=== PATIENT | female | born 1990 | race Caucasian/White ===

== ENCOUNTER → 2025-01-03 | Outpatient (REF) | payer OTHER | LOC: M SFHCPLAZ 16:16 | PROVIDERS: ATTEND Family Medicine | DX: Z53.9 Procedure and treatment not carried out, unspecified reason (principal) ==

== ENCOUNTER → 2025-02-08 | Outpatient (CLI) | payer OTHER ==
[2025-02-08 11:07] LABS: PLATELET COUNT, AUTOMATED 402 10^3/uL (150-450)
[2025-02-08 11:24] LABS: ESTIMATED AVERAGE GLUCOSE 108.0 MG/DL (60-110)
[2025-02-08 11:39] LABS: ALT/SGPT 22 U/L (7.0-40); AST/SGOT 18 U/L (<34); CALCIUM LEVEL 9.1 MG/DL (8.5-10.1); CARBON DIOXIDE LEVEL 26 MMOL/L (20-31); CHLORIDE LEVEL 107 MMOL/L (98-107); CHOLESTEROL LEVEL 162 MG/DL (<200); CHOLESTEROL RISK RATIO 3.88 (<5); CREATININE FOR GFR 0.58 MG/DL (0.55-1.30); FREE T4 1.31 NG/DL (0.89-1.76); GLOMERULAR FILTRATION RATE > 90.0 (>60); IRON (FE) 59 UG/DL (50-170); LDL CHOLESTEROL 90.5 MG/DL (<100); NON-HDL-C 120.3 MG/DL; PERCENT SATURATION 22.3 % (13.2-45.0); POTASSIUM SERUM 4.6 MMOL/L (3.5-5.1); SODIUM LEVEL 141 MMOL/L (136-145); TRIGLYCERIDES LEVEL 149 MG/DL (<150)
[2025-02-08 11:48] LABS: VITAMIN B12 LEVEL 547 PG/ML (211-911)
== END ==
LOC: M PLALAB 08:12
PROVIDERS: ATTEND Family Medicine
DX: I10 Essential (primary) hypertension (principal); Z13.29 Encounter for screening for other suspected endocrine disorder; D50.9 Iron deficiency anemia, unspecified; R73.03 Prediabetes; Z13.6 Encounter for screening for cardiovascular disorders